=== PATIENT | male | born 1985 | race Native Hawaiian/Other Pacific Islander ===

== ENCOUNTER 2019-11-06 11:59 | Outpatient (CLI) | payer OTHER | END 2019-11-06 22:06 | disposition home or self-care (01) | LOC: RAD 11:59 | DX: R07.89 Other chest pain (principal) ==

== ENCOUNTER 2019-11-15 10:19 | Outpatient (CLI) | payer OTHER ==
[2019-11-15 11:22] LABS: PLATELET COUNT 113 K/uL (142-355)
[2019-11-15 11:49] LABS: POTASSIUM 5.3 mmol/L (3.6-5.2)
== END 2019-11-15 18:59 | disposition home or self-care (01) ==
LOC: LABW 10:19
PROVIDERS: Internal Medicine Cardiovascular Disease
DX: Z48.21 Encounter for aftercare following heart transplant (principal); Z94.1 Heart transplant status; E83.40 Disorders of magnesium metabolism, unspecified; Z79.899 Other long term (current) drug therapy; G71.09 Other specified muscular dystrophies; N17.9 Acute kidney failure, unspecified; D64.9 Anemia, unspecified; R39.15 Urgency of urination
CPT/HCPCS: 36415; 80053; 80061; 81000; 82550; 83735; 84153; 84439; 84443; 85027

== ENCOUNTER 2019-11-20 12:19 | Outpatient (CLI) | payer OTHER ==
[2019-11-20 12:50] LABS: PLATELET COUNT 117 K/uL (142-355)
[2019-11-20 18:06] LABS: POTASSIUM 5.3 mmol/L (3.6-5.2)
== END 2019-11-20 20:26 | disposition home or self-care (01) ==
LOC: LABW 12:19
PROVIDERS: Internal Medicine Cardiovascular Disease
DX: Z48.21 Encounter for aftercare following heart transplant (principal); Z94.1 Heart transplant status; E83.40 Disorders of magnesium metabolism, unspecified; Z79.899 Other long term (current) drug therapy
CPT/HCPCS: 36415; 80053; 83735; 85027

== ENCOUNTER 2020-04-14 10:56 | Outpatient (CLI) | payer OTHER ==
[2020-04-14 11:23] LABS: PLATELET COUNT 197 K/uL (142-355)
[2020-04-14 12:27] LABS: POTASSIUM 5.2 mmol/L (3.6-5.2)
== END 2020-04-14 19:57 | disposition home or self-care (01) ==
LOC: LABW 10:56
PROVIDERS: ATTEND Internal Medicine Medical Oncology
DX: D61.818 Other pancytopenia (principal); R53.81 Other malaise; M79.603 Pain in arm, unspecified; N18.9 Chronic kidney disease, unspecified
CPT/HCPCS: 36415; 80053; 82397; 83970; 84436; 84439; 84443; 84479; 84480; 85027

== ENCOUNTER 2020-07-22 09:43 | Outpatient (CLI) | payer OTHER | END 2020-07-22 22:09 | disposition home or self-care (01) | LOC: LAB 09:43 | PROVIDERS: ATTEND Internal Medicine | DX: N18.6 End stage renal disease (principal); Z11.59 Encounter for screening for other viral diseases | CPT/HCPCS: 87635; G2023; U0003 ==

== ENCOUNTER 2020-08-17 15:32 | Outpatient (CLI) | payer OTHER | END 2020-08-17 20:53 | disposition home or self-care (01) | LOC: LAB 15:32 | PROVIDERS: ATTEND Physician Assistant Medical | DX: D64.9 Anemia, unspecified (principal) | CPT/HCPCS: 85014; 85018 ==

== ENCOUNTER 2021-03-31 08:33 | Outpatient (CLI) | payer OTHER ==
[2021-03-31 09:22] LABS: PLATELET COUNT 143 K/uL (142-355)
[2021-03-31 09:24] LABS: POTASSIUM 5.7 mmol/L (3.6-5.2)
== END 2021-03-31 20:13 | disposition home or self-care (01) ==
LOC: LABW 08:33
PROVIDERS: ATTEND Surgery
DX: Z94.0 Kidney transplant status (principal); Z94.83 Pancreas transplant status; Z79.899 Other long term (current) drug therapy; N25.89 Other disorders resulting from impaired renal tubular function
CPT/HCPCS: 36415; 80053; 80197; 81000; 82040; 82248; 83735; 84100; 84550; 85027

== ENCOUNTER 2021-04-12 07:48 | Outpatient (CLI) | payer OTHER ==
[2021-04-12 08:07] LABS: PLATELET COUNT 147 K/uL (142-355)
[2021-04-12 08:28] LABS: POTASSIUM 5.6 mmol/L (3.6-5.2)
== END 2021-04-12 18:56 | disposition home or self-care (01) ==
LOC: LABW 07:48
PROVIDERS: ATTEND Surgery
DX: Z94.0 Kidney transplant status (principal); Z94.83 Pancreas transplant status; Z79.899 Other long term (current) drug therapy; N25.89 Other disorders resulting from impaired renal tubular function
CPT/HCPCS: 36415; 80053; 80197; 81000; 82248; 83735; 84100; 84550; 85027; 87086; 87088

== ENCOUNTER 2021-04-19 07:52 | Outpatient (CLI) | payer OTHER ==
[2021-04-19 08:12] LABS: PLATELET COUNT 148 K/uL (142-355)
[2021-04-19 08:35] LABS: POTASSIUM 5.4 mmol/L (3.6-5.2)
== END 2021-04-19 18:00 | disposition home or self-care (01) ==
LOC: LABW 07:52
PROVIDERS: ATTEND Internal Medicine Nephrology
DX: Z94.0 Kidney transplant status (principal); Z94.83 Pancreas transplant status; Z79.899 Other long term (current) drug therapy; N25.89 Other disorders resulting from impaired renal tubular function
CPT/HCPCS: 36415; 80053; 80197; 81000; 82040; 82248; 83735; 84100; 84550; 85027; 87086; 87088

== ENCOUNTER 2021-05-05 09:56 | Outpatient (CLI) | payer OTHER ==
[2021-05-05 10:17] LABS: PLATELET COUNT 139 K/uL (142-355)
[2021-05-05 10:30] LABS: POTASSIUM 5.6 mmol/L (3.6-5.2)
== END 2021-05-05 21:22 | disposition home or self-care (01) ==
LOC: LABW 09:56
PROVIDERS: ATTEND Surgery
DX: Z94.0 Kidney transplant status (principal); Z94.83 Pancreas transplant status; Z79.899 Other long term (current) drug therapy; N25.89 Other disorders resulting from impaired renal tubular function
CPT/HCPCS: 36415; 80053; 80197; 81000; 82248; 85027

== ENCOUNTER 2021-05-11 09:35 | Outpatient (CLI) | payer OTHER ==
[2021-05-11 09:58] LABS: PLATELET COUNT 140 K/uL (142-355)
[2021-05-11 10:12] LABS: POTASSIUM 5.2 mmol/L (3.6-5.2)
== END 2021-05-11 19:10 | disposition home or self-care (01) ==
LOC: LABW 09:35
PROVIDERS: ATTEND Internal Medicine Nephrology
DX: Z94.0 Kidney transplant status (principal)
CPT/HCPCS: 36415; 80053; 80197; 81000; 82248; 83735; 84100; 84550; 85027; 87086; 87088

== ENCOUNTER 2021-05-18 08:08 | Outpatient (CLI) | payer OTHER ==
[2021-05-18 09:16] LABS: PLATELET COUNT 148 K/uL (142-355)
[2021-05-18 09:38] LABS: POTASSIUM 5.2 mmol/L (3.6-5.2)
== END 2021-05-18 19:10 | disposition home or self-care (01) ==
LOC: LABW 08:08
PROVIDERS: ATTEND Internal Medicine Nephrology
DX: Z94.0 Kidney transplant status (principal); Z94.83 Pancreas transplant status; Z79.899 Other long term (current) drug therapy; N25.89 Other disorders resulting from impaired renal tubular function
CPT/HCPCS: 36415; 80053; 80197; 81000; 82248; 85027

== ENCOUNTER 2021-09-15 08:57 | Outpatient (CLI) | payer OTHER ==
[2021-09-15 09:58] LABS: PLATELET COUNT 148 K/uL (142-355)
[2021-09-15 10:04] LABS: POTASSIUM 4.2 mmol/L (3.6-5.2)
== END 2021-09-15 18:52 | disposition home or self-care (01) ==
LOC: LABW 08:57
PROVIDERS: ATTEND Surgery
DX: Z94.0 Kidney transplant status (principal); Z79.899 Other long term (current) drug therapy
CPT/HCPCS: 36415; 80053; 80197; 81000; 82248; 83735; 84100; 84550; 85027; 87086; 87088

== ENCOUNTER 2021-10-13 10:38 | Outpatient (CLI) | payer OTHER ==
[2021-10-13 11:04] LABS: PLATELET COUNT 133 K/uL (142-355)
[2021-10-13 11:12] LABS: POTASSIUM 4.8 mmol/L (3.6-5.2)
== END 2021-10-13 18:51 | disposition home or self-care (01) ==
LOC: LABW 10:38
PROVIDERS: ATTEND Surgery
DX: Z94.0 Kidney transplant status (principal); Z94.83 Pancreas transplant status; Z79.899 Other long term (current) drug therapy; N25.89 Other disorders resulting from impaired renal tubular function
CPT/HCPCS: 36415; 80053; 80197; 81000; 82248; 83735; 84100; 84550; 85027; 87088

== ENCOUNTER 2021-12-02 10:47 | Outpatient (CLI) | payer OTHER ==
[2021-12-02 11:06] LABS: PLATELET COUNT 138 K/uL (142-355)
[2021-12-02 11:16] LABS: POTASSIUM 4.4 mmol/L (3.6-5.2)
== END 2021-12-02 22:25 | disposition home or self-care (01) ==
LOC: LABW 10:47
PROVIDERS: ATTEND Surgery
DX: Z94.0 Kidney transplant status (principal); Z94.83 Pancreas transplant status; Z79.899 Other long term (current) drug therapy; N25.89 Other disorders resulting from impaired renal tubular function
CPT/HCPCS: 36415; 80053; 80197; 82248; 85027

== ENCOUNTER 2022-01-03 08:30 | Outpatient (CLI) | payer OTHER ==
[2022-01-03 08:53] LABS: PLATELET COUNT 174 K/uL (142-355)
[2022-01-03 08:58] LABS: POTASSIUM 5.1 mmol/L (3.6-5.2)
== END 2022-01-03 19:49 | disposition home or self-care (01) ==
LOC: LABW 08:30
PROVIDERS: ATTEND Internal Medicine Nephrology
DX: Z94.0 Kidney transplant status (principal); Z94.83 Pancreas transplant status; Z79.899 Other long term (current) drug therapy; N25.89 Other disorders resulting from impaired renal tubular function
CPT/HCPCS: 36415; 80053; 80197; 81002; 82248; 83735; 84100; 84550; 85027; 87086; 87088

== ENCOUNTER 2022-01-18 08:35 | Outpatient (CLI) | payer OTHER ==
[2022-01-18 08:49] LABS: PLATELET COUNT 167 K/uL (142-355)
[2022-01-18 09:04] LABS: POTASSIUM 4.9 mmol/L (3.6-5.2)
== END 2022-01-18 19:27 | disposition home or self-care (01) ==
LOC: LABW 08:35
PROVIDERS: ATTEND Surgery
DX: Z94.0 Kidney transplant status (principal); Z94.83 Pancreas transplant status; Z79.899 Other long term (current) drug therapy; N25.89 Other disorders resulting from impaired renal tubular function
CPT/HCPCS: 36415; 80053; 80197; 81002; 82248; 83735; 84100; 84550; 85027

== ENCOUNTER 2022-02-01 09:48 | Outpatient (CLI) | payer OTHER ==
[2022-02-01 10:08] LABS: PLATELET COUNT 155 K/uL (142-355)
[2022-02-01 10:21] LABS: POTASSIUM 4.9 mmol/L (3.6-5.2)
== END 2022-02-01 21:02 | disposition home or self-care (01) ==
LOC: LABW 09:48
PROVIDERS: ATTEND Surgery
DX: Z94.0 Kidney transplant status (principal); Z94.83 Pancreas transplant status; Z79.899 Other long term (current) drug therapy; N25.89 Other disorders resulting from impaired renal tubular function
CPT/HCPCS: 36415; 80053; 80197; 81002; 82248; 83735; 84100; 84550; 85027; 87086; 87088

== ENCOUNTER 2022-02-15 08:22 | Outpatient (CLI) | payer OTHER ==
[2022-02-15 09:09] LABS: PLATELET COUNT 147 K/uL (142-355)
[2022-02-15 09:10] LABS: POTASSIUM 4.4 mmol/L (3.6-5.2)
== END 2022-02-15 19:29 | disposition home or self-care (01) ==
LOC: LABW 08:22
PROVIDERS: ATTEND Surgery
DX: Z94.0 Kidney transplant status (principal); Z94.83 Pancreas transplant status; Z79.899 Other long term (current) drug therapy; N25.89 Other disorders resulting from impaired renal tubular function
CPT/HCPCS: 36415; 80053; 80197; 81002; 82248; 83735; 84100; 84550; 85027

== ENCOUNTER 2022-04-08 08:12 | Outpatient (CLI) | payer OTHER ==
[2022-04-08 08:57] LABS: PLATELET COUNT 149 K/uL (142-355)
[2022-04-08 09:11] LABS: POTASSIUM 4.9 mmol/L (3.6-5.2)
== END 2022-04-08 19:15 | disposition home or self-care (01) ==
LOC: LABW 08:12
PROVIDERS: ATTEND Surgery
DX: Z94.0 Kidney transplant status (principal); Z94.83 Pancreas transplant status; Z79.899 Other long term (current) drug therapy; N25.89 Other disorders resulting from impaired renal tubular function
CPT/HCPCS: 36415; 80053; 80197; 81002; 82248; 83735; 84100; 84550; 85027

== ENCOUNTER 2022-05-17 08:35 | Outpatient (CLI) | payer OTHER ==
[2022-05-17 09:02] LABS: PLATELET COUNT 138 K/uL (142-355)
[2022-05-17 09:16] LABS: POTASSIUM 4.4 mmol/L (3.6-5.2)
== END 2022-05-17 20:32 | disposition home or self-care (01) ==
LOC: LABW 08:35
PROVIDERS: ATTEND Nurse Practitioner Family
DX: Z94.0 Kidney transplant status (principal); Z79.899 Other long term (current) drug therapy
CPT/HCPCS: 36415; 80053; 80197; 81002; 82248; 83735; 84100; 84550; 85027; 87086; 87088

== ENCOUNTER 2022-09-14 10:13 | Outpatient (CLI) | payer OTHER ==
[2022-09-14 10:41] LABS: PLATELET COUNT 143 K/uL (142-355)
[2022-09-14 11:10] LABS: POTASSIUM 5.1 mmol/L (3.6-5.2)
== END 2022-09-14 18:58 | disposition home or self-care (01) ==
LOC: LABW 10:13
PROVIDERS: ATTEND Nurse Practitioner Family
DX: Z94.0 Kidney transplant status (principal); Z79.899 Other long term (current) drug therapy
CPT/HCPCS: 36415; 80053; 80197; 81002; 82248; 83735; 84100; 84550; 85027; 87086; 87088

== ENCOUNTER 2023-02-24 13:17 | Outpatient (CLI) | payer OTHER | END 2023-02-24 19:25 | disposition home or self-care (01) | LOC: LABW 13:17 | PROVIDERS: ATTEND Nurse Practitioner Family | DX: Z94.0 Kidney transplant status (principal); Z79.899 Other long term (current) drug therapy | CPT/HCPCS: 81002; 87077; 87086; 87088; 87185 ==